=== PATIENT | female | born 1945 | race Caucasian/White ===

== ENCOUNTER → 2016-03-17 | Outpatient (CLI) | payer OTHER ==
--- NOTE | 2016-03-17 17:03 | MA ---
Screening Digital Mammogram With iCAD Analysis Clinical Indications: Routine screening. The patient has had left breast cancer treated with lumpecto my and has had a benign right breast stereotactic biopsy. Technique: Standard cephalocaudal projections are obtained. Digital breast tomosynthesis was performe d in the MLO projection with reconstruction at 1.0 mm slice thickness and composite MLO views reconst ructed. A skin marker is placed on left breast lumpectomy scar. This examination is processed by the iCAD computer aided detection system. Comparison: March 2015, March 2014, March 2013, March 2012, January 2011, January 2010, Jan, January 2008 Breast density: Type B; Scattered fibroglandular densities. Findings: CAD was reviewed. Architectural change at the left breast lumpectomy site is stable. No mas ses, suspicious calcifications or secondary signs of malignancy are seen. There has been no significa nt change in the appearance of either breast. Impression: Benign post lumpectomy mammography, BI-RADS 2. Recommendation: Routine mammographic screening in one year as long as physical examination is negativ [facility] will send a result letter to the patient. Negative mammography should not preclude additional workup of a clinically suspicious finding. The patient's information is entered into a reminder system with a target due date for her next mammo gram.
== END ==
LOC: FIMAGING 13:55
DX: Z12.31 Encounter for screening mammogram for malignant neoplasm of breast (principal)
CPT/HCPCS: G0202

== ENCOUNTER → 2017-03-18 | Outpatient (CLI) | payer OTHER | LOC: FIMAGING 13:48 | PROVIDERS: ATTEND Internal Medicine | DX: Z12.31 Encounter for screening mammogram for malignant neoplasm of breast (principal); Z86.000 Personal history of in-situ neoplasm of breast ==

== ENCOUNTER → 2017-07-29 | Outpatient (CLI) | payer OTHER ==
[~2017-07-29] MED LIST: GADOBUTROL 10 ML VIAL IVP ONE
== END ==
LOC: FIMAGING 10:18
PROVIDERS: ATTEND Neurological Surgery
DX: Z09 Encounter for follow-up examination after completed treatment for conditions other than malignant neoplasm (principal); Z98.890 Other specified postprocedural states
CPT/HCPCS: 70553; A9585

== ENCOUNTER → 2018-03-19 | Outpatient (CLI) | payer OTHER | LOC: FIMAGING 10:25 | PROVIDERS: ATTEND Internal Medicine | DX: Z12.31 Encounter for screening mammogram for malignant neoplasm of breast (principal); Z85.3 Personal history of malignant neoplasm of breast ==